=== PATIENT | female | born 1985 | race Caucasian/White ===

== ENCOUNTER 2019-01-08 21:47 | Emergency (ER) | payer OTHER ==
--- NOTE | 2019-01-08 22:46 | EDM.PDOC ---
ED HPI GENERAL MEDICAL PROBLEM - General Chief Complaint: ENT Problem Stated Complaint: DOUBLE EAR INFECTION Time Seen by Provider: 01/08/19 22:27 Source of Information: Reports: Patient, Family, RN Notes Reviewed History Limitations: Reports: No Limitations - History of Present Illness INITIAL COMMENTS - FREE TEXT/NARRATIVE: 33-year-old female presents emergency department today requesting to be evaluated for severe infection, she states she's had upper respiratory tract infection about a week but denies ear pain nausea vomiting shortness of breath no chest pain she is traveling and wants to make sure her ears are clear Bilateral Ear Pain Score (Numeric/FACES): 3 - Related Data Allergies Allergy/AdvReac Type Severity Reaction Status Date / Time No Known Allergies Allergy Verified 01/08/19 22:14 Home Meds: Home Meds Docosahexanoic Acid [ Dha] 200 mg PO DAILY 01/08/19 [History] Escitalopram [Lexapro] 10 mg PO DAILY 01/08/19 [History] Past Medical History [employer] History: Reports: Musculoskeletal History: Reports: Fracture Social & Family History - Family History Family Medical History: Unobtainable - Tobacco Use Smoking Status *Q: Never Smoker - Caffeine Use Caffeine Use: Reports: None - Recreational Drug Use Recreational Drug Use: No ED ROS GENERAL - Review of Systems Review Of Systems: See Below Constitutional: Reports: No Symptoms HEENT: Reports: No Symptoms Respiratory: Reports: No Symptoms Cardiovascular: Reports: No Symptoms GI/Abdominal: Reports: No Symptoms : Reports: No Symptoms ED EXAM, GENERAL - Physical Exam Exam: See Below Exam Limited By: No Limitations General Appearance: Alert, WD/WN, No Apparent Distress Ears: Normal External Exam, Normal Canal, Hearing Grossly Normal, Normal TMs Throat/Mouth: Normal Inspection, Normal Lips, Normal Teeth, Normal Gums, Normal Oropharynx, Normal Voice, No Airway Compromise Neck: Normal Inspection, Supple, Non-Tender, Full Range of Motion Respiratory/Chest: No Respiratory Distress, Lungs Clear, Normal Breath Sounds, No Accessory Muscle Use, Chest Non-Tender Cardiovascular: Regular Rate, Rhythm, No Murmur Course - Vital Signs Last Recorded V/S: Last Vital Signs Temp 97.2 F 01/08/19 22:15 Pulse 83 01/08/19 22:15 Resp 16 01/08/19 22:15 BP 116/69 01/08/19 22:15 Pulse Ox 96 01/08/19 22:15 Departure - Departure Time of Disposition: 22:45 Disposition: Home, Self-Care 01 Condition: Good Clinical Impression: Normal exam - Discharge Information Referrals: PCP,None [Primary Care Provider] - Additional Instructions: Follow-up primary care as needed - Assessment/Plan Plan: Assessment Acuity = acute Site and laterality = normal exam Etiology = none Manifestations = none Location of injury = Home Lab values = none Plan Follow-up primary care as needed This note was dictated using [employer] voice recognition software please call with any questions on syntax or grammar.
== END 2019-01-08 22:55 | disposition home or self-care (01) ==
LOC: JP.ED 21:47
DX: Z00.00 Encounter for general adult medical examination without abnormal findings (principal); Z79.899 Other long term (current) drug therapy
CPT/HCPCS: 99282